=== PATIENT | male | born 2000 | race Two or more races ===

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

== ENCOUNTER 2019-09-07 11:08 | Emergency (ER) | payer SELFPAY ==
[~2019-09-07] VITALS: Ht 175.3 cm; Wt 64.4 kg
[~2019-09-07 11:08] MED LIST: GUAIFENESIN1200 MG PO; PROMETHAZINE-C118 M1 ORAL; ZYRTEC-D TABLE1 EACH ORAL
[2019-09-07 11:20] VITALS: BP 106/78
--- NOTE | 2019-09-07 11:38 | Emergency Room Report ---
History of Present Illness General Chief Complaint: Flu Like Symptoms Source: Patient Present Illness HPI 19-year-old male with no medical problems, no surgeries, presents with 3-day history of cough with yellowish phlegm production, also reports hurts in his throat when he coughs but denies odynophagia. He also denies fevers, abdominal pain, vomiting, diarrhea, ear pain, leg swelling, hemoptysis, syncope, chest pain, recent travel, sick contacts. He reports he tried Vicks VapoRub and IcyHot with partial relief. Allergies: Coded Allergies: No Known Allergies (Unverified , 12/09/18) Patient History Past Medical History: see triage record Reviewed Nursing Documentation: PMH: Agreed; PSxH: Agreed Nursing Documentation-PMH Past Medical History: No Stated History Review of Systems All Other Systems: negative except mentioned in HPI Physical Exam Vital Signs Date Time Temp Pulse Resp B/P (MAP) Pulse Ox O2 Delivery O2 Flow Rate FiO2 09/07/19 11:14 99.7 106 19 105/70 (82) 97 Room Air Sp02 EP Interpretation: reviewed, normal General Appearance: no apparent distress, alert, non-toxic Head: normocephalic Eyes: bilateral eye normal inspection, bilateral eye PERRL, bilateral eye EOMI ENT: normal ENT inspection, hearing grossly normal, normal pharynx, no angioedema, normal voice, moist mucus membranes Neck: normal inspection, full range of motion, supple, supple/symm/no masses Respiratory: chest non-tender, lungs clear, normal breath sounds, chest symmetrical, palpation of chest normal Cardiovascular #1: normal peripheral pulses, regular rate, rhythm Cardiovascular #2: 2+ radial (R), 2+ radial (L) Gastrointestinal: normal inspection, non tender, soft, no mass, no guarding, no rebound Rectal: deferred Genitourinary: normal inspection, no CVA tenderness Musculoskeletal: back normal, normal range of motion, no calf tenderness, gait/ station normal, non-tender Neurologic: alert, motor strength/tone normal, microarray operations vice president III-XII nml as tested, sensory intact, responsive, speech normal Psychiatric: judgement/insight normal, memory normal, mood/affect normal Lymphatic: normal inspection, no adenopathy Medical Decision Making Diagnostic Impression: Primary Impression: Bronchitis ER Course Patient with signs and symptoms consistent with bronchitis, has a normal ENT as well as cardiorespiratory will discharge with prescriptions for cough relief as well as ibuprofen as needed Last Vital Signs Date Time Temp Pulse Resp B/P (MAP) Pulse Ox O2 Delivery O2 Flow Rate FiO2 09/07/19 11:14 99.7 106 19 105/70 (82) 97 Room Air Disposition: HOME, SELF-CARE Condition: Stable SHEA POE M.D Sep 07, 2019 11:38
[2019-09-07] MEDS ORDERED: IBUPROFEN600 MG ORAL (11:40)
[2019-09-07] MEDS ORDERED: ALBUTEROL SULF8.5 GM INH (11:40)
[2019-09-07] MEDS ORDERED: TESSALON PERLE100 MG ORAL (11:40)
[2019-09-07] MEDS ORDERED: GUAIFENESI100 MG/5 M ORAL (11:58)
[2019-09-07 12:05] VITALS: BP 105/75
[2019-09-08] MEDS ORDERED: ZITHROMAX250 MG ORAL (03:31)
== END 2019-09-07 12:05 | disposition home or self-care (01) ==
LOC: EMR 11:38
DX: J20.9 Acute bronchitis, unspecified (principal)
CPT/HCPCS: 99282

== ENCOUNTER 2019-09-08 02:25 | Emergency (ER) | payer SELFPAY ==
[~2019-09-08] VITALS: Ht 175.3 cm; Wt 63.5 kg
[~2019-09-08 02:25] MED LIST changes: +ALBUTEROL SULF8.5 GM INH; +GUAIFENESI100 MG/5 M ORAL; +IBUPROFEN600 MG ORAL; +TESSALON PERLE100 MG ORAL
--- NOTE | 2019-09-08 02:58 | NUR ---
ED Nurse Note: pt walked in c/o flu like sx for past couple of days, pt reports coughing, chest pain when cough, reports mucus, difficulty sleeping at night due to cough. will cont monitor.
--- NOTE | 2019-09-08 02:59 | Emergency Room Report ---
History of Present Illness General Chief Complaint: Flu Like Symptoms Source: Patient Present Illness HPI Patient is a 19-year-old male who presents after increased cough. He had previous ER visit and was previously prescribed Tessalon Perles as well as cough medications. He reports having increased difficulty breathing.Patient reports having persistent cough. He had previously been prescribed inhalers as well as other medications. He denies being a smoker. He denies any fever. Allergies: Coded Allergies: No Known Allergies (Unverified , 12/09/18) Patient History Past Medical History: see triage record Reviewed Nursing Documentation: PMH: Agreed; PSxH: Agreed Nursing Documentation-PMH Past Medical History: No Stated History Review of Systems All Other Systems: negative except mentioned in HPI Physical Exam Vital Signs Date Time Temp Pulse Resp B/P (MAP) Pulse Ox O2 Delivery O2 Flow Rate FiO2 09/08/19 02:45 98.4 114 20 120/86 (97) 96 Room Air Sp02 EP Interpretation: reviewed, normal General Appearance: normal inspection, well appearing, no apparent distress, alert, GCS 15, non-toxic Head: atraumatic ENT: normal ENT inspection, hearing grossly normal, normal voice Neck: normal inspection, full range of motion, supple, no bony tend Respiratory: normal inspection, lungs clear, normal breath sounds, no respiratory distress, no retraction, no wheezing Cardiovascular #1: regular rate, rhythm, no edema Gastrointestinal: normal inspection, normal bowel sounds, non tender, soft, no guarding, no hernia Genitourinary: no CVA tenderness Musculoskeletal: normal inspection, back normal, normal range of motion Neurologic: alert, motor strength/tone normal, self sealing fuel tank repairer III-XII nml as tested, EOM palsy, oriented x3, responsive, speech normal, normal inspection Psychiatric: normal inspection, judgement/insight normal, mood/affect normal Medical Decision Making Diagnostic Impression: Primary Impression: Pneumonitis ER Course Patient present for cough. The differential diagnosis include was not limited to influenza, pneumonia, bronchitis among others.Chest x-ray one view interpreted by me showed right lower perihilar thickening. Patient showed some evidence of productive cough and chest x-ray showed some evidence of mild pneumonitis. Patient was given prescription for azithromycin. Patient appears to be stable for discharge. He does not appear to have any evidence of hypoxemia or severe respiratory distress. Patient was advised to continue his [id number] cough medications to help with his cough. He is advised that this would take several weeks for this to resolve sometimes.Patient was advised that he should continue to work with his primary care physician. Last Vital Signs Date Time Temp Pulse Resp B/P (MAP) Pulse Ox O2 Delivery O2 Flow Rate FiO2 09/08/19 02:45 98.4 114 20 120/86 (97) 96 Room Air Status: improved Disposition: HOME, SELF-CARE Condition: Stable Scripts Azithromycin* (ZITHROMAX*) 250 Mg Tablet 250 MG ORAL DAILY, #6 TAB 0 Refills Take two tables once daily for 1 day, then one tablet once daily for 4 days. Prov: Aaron Nieves MD 09/08/19 Aaron Nieves MD Sep 08, 2019 02:59
[2019-09-08 03:00] VITALS: BP 120/86
[2019-09-08] MEDS ORDERED: ZITHROMAX250 MG ORAL (03:31)
--- NOTE | 2019-09-08 03:32 | NUR ---
ED Nurse Note: pt refused medication, ERMD notified.
--- NOTE | 2019-09-08 03:41 | NUR ---
ED Nurse Note: pt is cleared to be per ERMD, pt discharge and aftercare instruction along with prescription provided, pt refused to take the prescription and discharge instruction, attempted to educate patient regarding disease process but pt refused, pt states the medication he was prescribed earlier isn't helping and states he will throw them away, pt advised he needs to take the medication as directed, pt advised to follow up with pcp or return to ed if sx worsen, pt refused education and instructions. ERMD aware. pt refused to sign discharge paperwork. pt vss, no sx resp distress at this time. ambulatory w/ steady gait. left w/ all belongings.
[2019-09-08 03:45] VITALS: BP 120/86
--- NOTE | 2019-09-08 03:45 | NUR ---
ED Nurse Note: pt states "I need promethazine with codeine, it's the only thing that works, my aunt is a doctor in [place] and she says I need it! Ibuprofen doesn't work. I need something stronger. I need something stronger to go to sleep." Pt informed that the medications are prescribed by the ERMD. pt threw robitussin syrup on the chair, on the ground and at the computer. house sup contacted and notified and spoke with the pt.
--- NOTE | 2019-09-08 13:32 | Diagnostic Imaging Report ---
Indication: Cough Technique: One view of the chest Comparison: none Findings: Lungs and pleural spaces are clear. Heart size is normal. Impression: No acute process
== END 2019-09-08 03:05 | disposition home or self-care (01) ==
LOC: EMR 03:02
DX: J18.9 Pneumonia, unspecified organism (principal)
CPT/HCPCS: 71045; 99283